=== PATIENT | male | born 1950 | race Caucasian/White ===

== ENCOUNTER 2016-11-28 15:32 | Emergency (ER) | payer MEDICARE, OTHER ==
[~2016-11-28 15:32] MED LIST: AMLO5TAB22 PO; COLC1TAB7 PO; HYDR-3534 PO; INDO25 PO; LISI-363 PO; VALI5TAB PO
[2016-11-28 15:38] VITALS: BP 139/87; PULSE 75; RESP 20; TEMP 98.7; O2SAT 95
[2016-11-28] MEDS ORDERED: KETOROLAC TROMETHAMINE 60 MG/2 ML (IM) VIAL IM ONE (16:00)
[2016-11-28] MEDS ORDERED: COLC1TAB7 PO (16:01)
[2016-11-28] MEDS ORDERED: LISI2.5T3 PO (16:01)
[2016-11-28] MEDS ORDERED: HYDR-3535 PO (16:01)
[2016-11-28] MEDS ORDERED: DIAZ10TA PO (16:01)
[2016-11-28] MEDS ORDERED: INDO50CA PO (16:20)
--- NOTE | 2016-11-28 16:30 | PD ---
HPI Chief Complaint: Musculoskeletal Complaint Time Seen by Provider: 15:55 Travel History International Travel<30 days: No Contact w/Intl Traveler<30days: No Traveled to known affect area: No History of Present Illness HPI 66-year-old male with a long history of chronic gout and osteoarthritis the right knee presents to the emergency room for evaluation of right knee pain that started flaring 2 weeks ago. Patient reports chronic pain over the past year but over the past 2 weeks it has become especially painful. Pain is worsened with any range of motion and ambulation. He has prescribed Lortab 10/ 325 for chronic low back pain and states these are not even helping his symptoms. He has been taking Advil without any significant relief. He presents requesting intra-articular steroid injection or oral steroids. He was last on oral steroids 6 months ago. He has a primary care physician and is in the process of setting up an appointment with an orthopedist for a total knee replacement. Denies paresthesias or chronic kidney disease. Denies trauma or injury to the knee. PFSH Past Medical History Anxiety: Yes Cerebrovascular Accident: Yes Gout: Yes Hypertension: Yes Kidney Stones: Yes Tetanus Vaccination: Unknown Influenza Vaccination: No Social History Alcohol Use: No Tobacco Use: No Substance Use: No Allergies-Medications (Allergen,Severity, Reaction): Coded Allergies: No Known Allergies (Verified , 11/28/16) Reported Meds & Prescriptions Reported Meds & Active Scripts Active Reported Colcrys (Colchicine) 0.6 Mg Tab 0.6 Mg PO DAILY PRN Lisinopril 2.5 Mg Tab 2.5 Mg PO DAILY Diazepam 10 Mg Tab 10 Mg PO QID PRN Lortab (Hydrocodone-Acetaminophen) 10-325 Mg Tab 1 Tab PO QID PRN Review of Systems Except as stated in HPI: all other systems reviewed are Neg Physical Exam Narrative GENERAL: Well-nourished, well-developed male in no acute distress. Afebrile. Ambulatory. SKIN: Focused skin assessment warm/dry. No erythema or ecchymosis. Multiple large tophi to various joints especially elbows, hands, and knees. HEAD: Normocephalic. EYES: No scleral icterus. No injection or drainage. NECK: Supple, trachea midline. No JVD or lymphadenopathy. CARDIOVASCULAR: Regular rate and rhythm without murmurs, gallops, or rubs. RESPIRATORY: Breath sounds equal bilaterally. No accessory muscle use. GASTROINTESTINAL: Abdomen soft, non-tender, nondistended. MUSCULOSKELETAL: No cyanosis. Moderate edema of the right knee. No obvious effusion. Right lower extremity has bounding 2+ dorsalis pedis pulse. Full range of motion of the joints in RLE. No specific bony tenderness to palpation. Data Data Last Documented VS Vital Signs Date Time Temp Pulse Resp B/P Pulse Ox O2 Delivery O2 Flow Rate FiO2 11/28/16 15:38 98.7 75 20 139/87 95 Orders Ketorolac Inj (Toradol Inj) (11/28/16 16:00) [facility] Medical Decision Making Medical Screen Exam Complete: Yes Emergency Medical Condition: Yes Medical Record Reviewed: Yes Differential Diagnosis Gout, osteoarthritis, sprain, strain Narrative Course 66-year-old male with history of osteoarthritis and gout presents to the emergency room for evaluation of acute on chronic right knee pain. Patient has had chronic right knee pain for several years and states it has been hurting continuously for the past year but especially worsened over the past 2 weeks. Denies trauma or injury. Right lower extremity is neurovascularly intact with 2 + dorsalis pedis pulse. Full range of motion. No evidence of septic arthritis. No indication for imaging at this time. This is acute exacerbation of gouty arthritis. He denies kidney disease. Patient was given Toradol in the emergency room and discharged with prescription for indomethacin. Patient requested oral steroids but was just on them 6 months ago and has recurrent gouty arthritis. Patient was informed that it is contraindicated to be on chronic steroids for gouty arthritis as there are many side effects of chronic steroid use. He was told to follow-up with an orthopedist for intra-articular injections or return for worsening symptoms. He understands and agrees to plan. Diagnosis Primary Impression: Chronic gouty arthritis Referrals: Primary Care Physician Patient Instructions: General Instructions, Gout (ED) Additional Instructions: Rest and drink plenty of fluids. Take indomethacin with food as directed, as needed for pain. Apply ice to the affected area for 20 minutes at a time, as needed for pain and swelling. Follow-up with a primary care physician. Return to the emergency room for worsening symptoms. Scripts Indomethacin 50 Mg Cap50 Mg PO TID 7 Days Ref 0 Take with food, milk, or antacids to decrease stomach adverse effects. Prov:Rock Rivera MD 11/28/16 Disposition: 01 DISCHARGE HOME Condition: Stable Meaghan Linder Nov 28, 2016 16:30
== END 2016-11-28 16:45 | disposition home or self-care (01) ==
LOC: PHEFT 15:32
DX: M1A.9XX0 Chronic gout, unspecified, without tophus (tophi) (principal); I10 Essential (primary) hypertension; Z87.39 Personal history of other diseases of the musculoskeletal system and connective tissue; Z86.59 Personal history of other mental and behavioral disorders; Z86.79 Personal history of other diseases of the circulatory system; Z87.442 Personal history of urinary calculi
CPT/HCPCS: 96372; 99284; J1885